=== PATIENT | female | born 1930 | race Caucasian/White ===

== ENCOUNTER 2018-10-28 16:31 | Inpatient (IN) | payer MEDICARE, MEDICAID ==
[2018-10-28] MEDS ORDERED: Sodium Chloride 0.9% 1,000 ML IV STA ×2 (17:03→22:23)
[2018-10-28 17:48] LABS: BASO % 0.1 % (0.0-2.0); EOS # 0.2 K/uL (0.0-0.7); HEMOGLOBIN 11.5 g/dL (12.0-16.0); LYMPH # 1.4 K/uL (1.0-4.3); LYMPH % 12.6 % (20.0-40.0); MEAN CELL VOLUME 92.9 fl (81.0-99.0); MEAN CORPUSCULAR HEMOGLOBIN 29.2 pg (27.0-31.0); MEAN CORPUSCULAR HGB CONC 31.4 g/dL (33.0-37.0); MEAN PLATELET VOLUME 6.7 fl (7.2-11.7); MONO # 0.8 K/uL (0.0-0.8); MONO % 6.7 % (0.0-10.0); NEUT # 8.9 K/uL (1.8-7.0); NEUT % 78.6 % (50.0-75.0); NRBC % 0.2 % (0.0-0.0); RBC 3.95 Mil/uL (3.80-5.20); RED CELL DISTRIBUTION WIDTH 17.6 % (11.5-14.5); WHITE BLOOD COUNT 11.4 K/uL (4.8-10.8)
[2018-10-28 17:50] LABS: VENOUS BLOOD GAS BASE EXCESS 6.8 mmol/L (0.0-2.0); VENOUS BLOOD GAS PCO2 57 mmHg (40-60); VENOUS BLOOD GAS PO2 17 mm/Hg (30-55); VENOUS BLOOD PH 7.38 (7.32-7.43)
--- NOTE | 2018-10-28 18:00 | RAD ---
Date of service: 10/28/2018 HISTORY: decreased po intake COMPARISON: 05/27/2014. FINDINGS: LUNGS: The lungs are well inflated and clear. PLEURA: No pleural effusions or pneumothorax. CARDIOVASCULAR: There is mild cardiomegaly. There are aortic atherosclerotic calcifications present. OSSEOUS STRUCTURES: Within normal limits for the patient's age. VISUALIZED UPPER ABDOMEN: Normal. OTHER FINDINGS: None. IMPRESSION: No active pulmonary disease.
[2018-10-28 18:02] LABS: ALB/GLOB RATIO 0.8 (1.0-2.1); ALBUMIN 3.1 g/dL (3.5-5.0); ALT/SGPT 17 U/L (9-52); AST/SGOT 35 U/L (14-36); BLOOD UREA NITROGEN 25 mg/dl (7-17); CALCIUM 8.9 mg/dL (8.4-10.2); GFR NON-AFRICAN AMERICAN > 60
--- NOTE | 2018-10-28 18:23 | ED PDOC ---
HPI: Altered Mental Status Time Seen by Provider: 10/28/18 16:50 Chief Complaint (Nursing): Altered Mental Status Chief Complaint (Provider): Altered Mental Status History Per: Other ([facility]) History/Exam Limitations: Clinical Condition Onset/Duration Of Symptoms: Days (x5) Current Symptoms Are (Timing): Still Present Description Of Symptoms: Not At Baseline Usual Baseline: Non-verbal Additional Complaint(s): 88 year old female with past history of gastritis and dementia, arrives to the emergency department from [facility] for an evaluation of altered mental status. History obtained from [facility] papers which reports that patient has not been eating for the past 5 days. Of note, patient is DNR/DNI. PCP: Dr. Ayoub Past Medical History Reviewed: Nursing Documentation, Vital Signs Vital Signs: Last Vital Signs Temp 97.6 F 10/28/18 16:32 Pulse 112 H 10/28/18 16:32 Resp 20 10/28/18 16:32 BP 111/60 10/28/18 16:32 Pulse Ox 90 L 10/28/18 16:32 - Medical History PMH: CAD, Dementia, Gastritis, Osteoporosis, Seizures Denies: HIV - Family History Family History: States: Unknown Family Hx - Social History Current smoker - smoking cessation education provided: No Alcohol: None Drugs: Denies - Home Medications Home Medications: Ambulatory Orders Medication Instructions Recorded Acetaminophen [Tylenol 325mg tab] 650 mg PO Q4 PRN 10/28/18 Acetaminophen [Tylenol 325mg tab] 650 mg PO Q4 PRN 10/28/18 Ascorbic Acid [Vitamin C 500 mg 500 mg PO DAILY 10/28/18 Tab] Bisoprolol [Zebeta] 5 mg PO DAILY 10/28/18 Cyproheptadine [Periactin] 4 mg PO BID 10/28/18 Dimethicone [Proshield Plus] 1 appl TOP QSHIFT 10/28/18 Lactobacillus Acidophilus 1 cap PO BID 10/28/18 [Acidophilus Lactobacilli] Lamotrigine [Lamictal] 150 mg PO Q12 10/28/18 Multivitamin [Multi-Vitamin Daily] 1 tab PO DAILY 10/28/18 Nitroglycerin 0.2 mg/hr [Nitro-Dur 1 patch TD DAILY 10/28/18 0.2 mg/hr Patch] Nystatin [Nystop Topical Powder] 1 appl TOP BID 10/28/18 [place]-3 Fatty Acids [Antioch-3] 1,000 mg PO DAILY 10/28/18 Ranitidine HCl [Zantac] 150 mg PO BID 10/28/18 Vitamin B Complex [Super B-50 1 cap PO DAILY 10/28/18 Complex] - Allergies Allergies/Adverse Reactions: Allergies Allergy/AdvReac Type Severity Reaction Status Date / Time No Known Allergies Allergy Verified 10/28/18 16:32 Review of Systems Review Of Systems: ROS cannot be obtained secondary to pt's inabilty to answer questions. Physical Exam - Reviewed Nursing Documentation Reviewed: Yes Vital Signs Reviewed: Yes - Physical Exam Appears: Positive for: No Acute Distress (dehydrated appearance). Negative for: Well Head Exam: Positive for: ATRAUMATIC, NORMAL INSPECTION, NORMOCEPHALIC Skin: Positive for: Normal Color ENT: Positive for: Normal ENT Inspection (dry mucous membranes) Neck: Positive for: Normal Cardiovascular/Chest: Positive for: Regular Rate, Rhythm Gastrointestinal/Abdominal: Positive for: Normal Exam Extremity: Positive for: Pedal Edema (pitting 1+ bilaterally; bilateral toes with fungal appearance) Neurologic/Psych: Positive for: Other (nonresponsive to verbal stimuli, however, minimally responsive to painful stimuli). Negative for: Alert, Oriented - Laboratory Results Result Diagrams: 10/28/18 17:15 10/28/18 17:15 Lab Results: pO2 17 mm/Hg (30-55) L 10/28/18 17:29 VBG pH 7.38 (7.32-7.43) 10/28/18 17:29 VBG pCO2 57 mmHg (40-60) 10/28/18 17:29 VBG HCO3 28.2 mmol/L 10/28/18 17:29 VBG Total CO2 35.4 mmol/L (22-28) H 10/28/18 17:29 VBG O2 Sat (Calc) 26.2 % (40-65) L 10/28/18 17:29 VBG Base Excess 6.8 mmol/L (0.0-2.0) H 10/28/18 17:29 VBG Potassium 4.4 mmol/L (3.6-5.2) 10/28/18 17:29 Sodium 152.0 mmol/L (132-148) H 10/28/18 17:29 Chloride 115.0 mmol/L (98-107) H 10/28/18 17:29 Glucose 106 mg/dL (65-105) H 10/28/18 17:29 Lactate 1.6 mmol/L (0.7-2.1) 10/28/18 17:29 FiO2 21.0 % 10/28/18 17:29 Total Bilirubin 1.4 mg/dl (0.2-1.3) H 10/28/18 17:15 AST 35 U/L (14-36) 10/28/18 17:15 ALT 17 U/L (9-52) 10/28/18 17:15 Alkaline Phosphatase 64 U/L (38-126) 10/28/18 17:15 Total Protein 7.1 G/DL (6.3-8.2) 10/28/18 17:15 Albumin 3.1 g/dL (3.5-5.0) L D 10/28/18 17:15 Globulin 4.0 gm/dL (2.2-3.9) H 10/28/18 17:15 Albumin/Globulin Ratio 0.8 (1.0-2.1) L 10/28/18 17:15 - ECG O2 Sat by Pulse Oximetry: 90 (RA) Pulse Ox Interpretation: Normal Medical Decision Making Medical Decision Making: Time: 1649 Initial Plan: altered mental status * Labs * CXR * IV fluids * Blood culture * Urine C&S Time: 2126 --CT FINDINGS: BRAIN No acute intraparenchymal hemorrhage. No mass lesion. No CT evidence for acute territorial infarct. No midline shift or extra-axial collections. There is marked age appropriate diffuse cerebral/cerebellar atrophy; which is noted to have progressed since the prior examination. There are bilateral confluent periventricular and subcortical white matter hypolucencies compatible with severe chronic microvascular disease. VENTRICLES: There is some compensatory ventricular dilatation noted for the cortical atrophy. VASCULAR: Atheroosclerotic vascular plaquing is noted within the vertebral arteries and carotid siphons bilaterally. ORBITS: The orbits are unremarkable. SINUSES AND MASTOIDS: A 1.0 cm mucous retention cyst or polyp is seen in the posterior inferior left maxillary sinus. Additional smaller mucous retention cysts or polyps are seen in the postero-medial and anterolateral aspects of the left maxillary sinus. An additional 1.7 x 1.4 cm mucous retention cyst or polyp is seen in the anterior superior left maxillary sinus. The remaining paranasal sinuses and mastoid air cells are clear. BONES: No fracture. SOFT TISSUES: Unremarkable. IMPRESSION: 1. No acute intracranial abnormality. 2. Marked age appropriate diffuse cerebral/cerebellar atrophy. 3. Mild compensatory ventricular dilatation for the cortical atrophy. 4. Severe chronic microvascular disease. 5. Atherosclerotic vascular plaquing. 6. Multiple left maxillary sinus mucous retention cysts or polyps. Time: 2229 CXR appears negative. Case discussed with Dr Ayoub pts doctor. Will admit patient to med/surg unit. urine obtained, will cover for uti. dr ayoub agrees with plan Scribe Attestation: Documented by Manda Lantigua, acting as a scribe for Jairon Church MD. Provider Scribe Attestation: All medical record entries made by the Scribe were at my direction and personally dictated by me. I have reviewed the chart and agree that the record accurately reflects my personal performance of the history, physical exam, medical decision making, and the department course for this patient. I have also personally directed, reviewed, and agree with the discharge instructions and disposition. Disposition - Clinical Impression Clinical Impression: Altered mental status, UTI (urinary tract infection) - Patient ED Disposition Is Patient to be Admitted: Yes - Disposition Disposition Time: 22:00 Condition: STABLE Forms: Prism[employer] ([place])
[2018-10-28 23:06] LABS: SQUAMOUS EPITHIAL 1 /hpf (0-5); URINE BACTERIA MANY (<OCC); URINE BILIRUBIN NEGATIVE (NEGATIVE); URINE BLOOD SMALL (NEGATIVE); URINE CLARITY CLOUDY (Clear); URINE COLOR AMBER (YELLOW); URINE GLUCOSE (UA) NEG (NEGATIVE); URINE LEUKOCYTE ESTERASE LARGE Leu/uL (Negative); URINE PROTEIN 30 mg/dL (NEGATIVE)
[2018-10-29] MEDS ORDERED: cefTRIAXone (Rocephin) 1 gm Inj ONE (01:08)
[2018-10-29] MEDS: Dextrose 5%/0.45% NS 1,000 ML IV SCH ×3 (07:03→20:57)
--- NOTE | 2018-10-29 09:49 | CT ---
Date of service: 10/28/2018 PROCEDURE: CT HEAD WITHOUT CONTRAST. HISTORY: ams COMPARISON: 05/25/2014 TECHNIQUE: Axial computed tomography images were obtained through the head/brain without intravenous contrast. Radiation dose: Total exam DLP = 905.84 mGy-cm. This CT exam was performed using one or more of the following dose reduction techniques: Automated exposure control, adjustment of the mA and/or kV according to patient size, and/or use of iterative reconstruction technique. FINDINGS: HEMORRHAGE: No intracranial hemorrhage. BRAIN: No mass effect or edema. Generalized cerebral atrophy and periventricular deep white matter hypodensities compatible with chronic microvascular ischemic changes. No interval vascular territory infarcts are appreciated. Similar right basal ganglia lacune VENTRICLES: Prominent commensurate with the degree of atrophy. No hydrocephalus. CALVARIUM: No lytic lesions. PARANASAL SINUSES: Similar paranasal sinus mostly left maxillary sinus retention cyst and/or polyps. MASTOID AIR CELLS: Interval increased soft tissue density within the mastoid air cells right side much more than left and some increased soft tissue density in the right middle ear cavity along with thickening of the right tympanic membrane suspect. Chronic mastitis changes with or without cholesteatoma and chronic otitis media findings are compatible with this. Soft tissue changes are interval changes. The chronic sclerotic changes of the mastoids are again noted. OTHER FINDINGS: Interval increased soft tissue density in each external auditory canal correlate clinically for visual inspection terms of cerumen and/or other inflammatory change here. No gaseous changes noted. The amount however is not unexpected or would be a surprise for any decreased hearing. Scattered bilateral scalp soft tissue density sebaceous cyst small which appear calcified are apparent Bilateral orbital scleral calcifications similarly noted. IMPRESSION: No intracranial hemorrhage or mass effect. Chronic atrophy and chronic microvascular changes-chronic right basal ganglia lacune. 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 Interval soft tissue change is in the mastoid and right middle ear cavity in both external auditory canals as detailed above. 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 The middle ear cavity and external auditory canal findings were not
[2018-10-30 00:47] LABS: ALB/GLOB RATIO 0.7 (1.0-2.1); ALBUMIN 2.7 g/dL (3.5-5.0); ALT/SGPT 25 U/L (9-52); AST/SGOT 26 U/L (14-36); BLOOD UREA NITROGEN 18 mg/dl (7-17); CALCIUM 7.8 mg/dL (8.4-10.2); GFR NON-AFRICAN AMERICAN > 60
[2018-10-30 01:00] VITALS: BMI 24.6
[2018-10-30] MEDS ORDERED: Potassium Chloride 20 mEq 100 ML IVPB ONE (01:04)
[2018-10-30] MEDS: Dextrose 5%/0.45% NS 1,000 ML IV SCH ×5 (01:16→22:31)
--- NOTE | 2018-10-30 05:34 | HP ---
HISTORY OF PRESENT ILLNESS: This is an 88-year-old female with history of multiple medical problems who is a [facility] resident, was brought to the emergency room for worsening of mental status, lethargy and the patient stopped to eat with remarkable decrease of oral intake. The patient was evaluated in the emergency room, and she was found to have dehydration with hypernatremia and the urine had 402 wbc's per high-power field. The patient was started on IV antibiotics and IV hydration and admitted for further management. The patient is severely demented and no further history could be obtained from the patient. Other review of systems is not obtainable as the patient has advanced dementia. The patient was admitted for further management. PAST MEDICAL HISTORY: Atherosclerotic cardiovascular disease, advanced dementia, hypertension, osteoarthritis. SOCIAL HISTORY: The patient is a [facility] resident. FAMILY HISTORY: Noncontributory. MEDICATIONS: As per MAR was ordered. PHYSICAL EXAMINATION: GENERAL: The patient is not in any cardiopulmonary distress at the time of this examination. VITAL SIGNS: With a blood pressure of 113/86, temperature 98.5, respiratory rate 20, and pulse 98. HEENT: Dry mucosa of the mouth. NECK: Supple. No JVD. No carotid bruit. No lymph node. No thyromegaly. CHEST AND LUNGS: Bilateral symmetrical expansion. Good air exchange. No rales. No rhonchi. CARDIOVASCULAR SYSTEM: PMI not localized. S1 and S2. No additional sounds. ABDOMEN: Decreased bowel sounds. No tenderness. No organomegaly. No masses. EXTREMITIES: No cyanosis, no clubbing, no edema. The patient has deformity of both upper extremities, likely secondary to rheumatoid arthritis. Blood work done in the emergency room. CENTRAL NERVOUS SYSTEM: The patient is confused. She is not responsive to any verbal stimuli. She has 5/5 muscle power of both upper extremities, but she is having weakness of both lower extremities. ASSESSMENT: 1. Dehydration. 2. Severe hypernatremia. 3. Urinary tract infection. PLAN: We will start IV fluids D5 half normal saline. The patient is already started on Zosyn. We will continue and monitor the urine culture results. Plan, continue IV fluid and continue antibiotics and follow culture sent. Marco Antonio Ayoub MD [facility] # [id number]
[2018-10-30] MEDS: Proshield Plus GEL TOP SCH (09:35)
[2018-10-30] MEDS: Enoxaparin 40 mg Syringe SC SCH (09:38)
[2018-10-30] MEDS: Nitroglycerin 0.2 mg/hr Top Patch TD SCH (09:38)
[2018-10-30] MEDS: Omega-3-Acid Ethyl Esters 1 GM Cap PO SCH (09:40)
[2018-10-30] MEDS: Multivitamin With Minerals Tab PO SCH (09:41)
[2018-10-30] MEDS: Lactobacillus Acidophilus 500 MU Cap PO SCH ×2 (09:59→16:42)
[2018-10-30] MEDS: Multivitamin Vitamin B Complex (Nephro-Vite) Tab PO SCH (16:31)
--- NOTE | 2018-10-31 01:21 | PN ---
DATE: 10/30/2018 SUBJECTIVE: The patient is seen today, 10/30/2018. She is not in any cardiopulmonary distress. The patient is more awake and alert. PHYSICAL EXAMINATION: VITAL SIGNS: Blood pressure is 125/71, temperature 96.7, respiratory rate 20. HEENT: Slightly dry mucosa of the conjunctivae. NECK: Supple. No JVD. No carotid bruit. No lymph node. No thyromegaly. CHEST AND LUNGS: Bilateral symmetrical expansion. Good air exchange. No rales. No rhonchi. CARDIOVASCULAR SYSTEM: PMI not localized. S1 and S2. No additional sounds. ABDOMEN: Normoactive bowel sounds. No tenderness. No organomegaly. No masses. EXTREMITIES: No cyanosis, no clubbing, no edema. CENTRAL NERVOUS SYSTEM: The patient is alert and she is not disoriented or confused. There is bilateral lower extremity weakness and deformity of both hands. ASSESSMENT: 1. Severe dehydration. 2. Hypernatremia. PLAN: Continue [place] catheter and adequate hydration and current IV antibiotics treatment for urinary tract infection. Marco Antonio Ayoub MD
[2018-10-31] MEDS: Dextrose 5%/0.45% NS 1,000 ML IV SCH ×2 (04:07→09:00)
[2018-10-31 06:51] LABS: HEMOGLOBIN 9.9 g/dL (12.0-16.0); MEAN CELL VOLUME 93.9 fl (81.0-99.0); MEAN CORPUSCULAR HEMOGLOBIN 30.5 pg (27.0-31.0); MEAN CORPUSCULAR HGB CONC 32.4 g/dL (33.0-37.0); RBC 3.25 Mil/uL (3.80-5.20); RED CELL DISTRIBUTION WIDTH 17.6 % (11.5-14.5)
[2018-10-31 07:19] LABS: ALB/GLOB RATIO 0.7 (1.0-2.1); ALBUMIN 2.3 g/dL (3.5-5.0); ALT/SGPT 21 U/L (9-52); AST/SGOT 23 U/L (14-36); BLOOD UREA NITROGEN 17 mg/dl (7-17); CALCIUM 7.7 mg/dL (8.4-10.2); GFR NON-AFRICAN AMERICAN > 60
[2018-10-31] MEDS: Lactobacillus Acidophilus 500 MU Cap PO SCH ×2 (08:59→17:17)
[2018-10-31] MEDS: Omega-3-Acid Ethyl Esters 1 GM Cap PO SCH (09:01)
[2018-10-31] MEDS: Multivitamin Vitamin B Complex (Nephro-Vite) Tab PO SCH (09:01)
[2018-10-31] MEDS ORDERED: Potassium Chloride 20 mEq/15 ml LIQ UD PO ONE (09:01)
[2018-10-31] MEDS: Nitroglycerin 0.2 mg/hr Top Patch TD SCH (09:01)
[2018-10-31] MEDS: Multivitamin With Minerals Tab PO SCH (09:04)
[2018-10-31] MEDS: Enoxaparin 40 mg Syringe SC SCH (09:11)
--- NOTE | 2018-11-01 03:09 | PN ---
DATE: 10/31/2018 SUBJECTIVE: The patient is seen today on 10/31/2018 and she is more awake. PHYSICAL EXAMINATION: VITAL SIGNS: Blood pressure is 105/71, temperature 97.8, respiratory rate 20, and pulse 85. HEENT: Pupils are equal and reactive to light. Normal-appearing mucosa of the conjunctivae, oropharynx and nasal membrane mucosa. NECK: Supple. No JVD. No carotid bruit. No lymph node. No thyromegaly. CHEST AND LUNGS: Bilateral symmetrical expansion. Good air exchange. No rales. No rhonchi. CARDIOVASCULAR SYSTEM: PMI not localized. S1 and S2. No additional sounds. ABDOMEN: Normoactive bowel sounds. No tenderness. No organomegaly. No masses. EXTREMITIES: No cyanosis, no clubbing, no edema. CENTRAL NERVOUS SYSTEM: The patient is awake, but confused and she has bilateral lower extremity weakness. ASSESSMENT: 1. Severe dehydration. 2. Hypernatremia. 3. Symptomatic urinary tract infection with decreased oral intake. PLAN: Continue Zosyn and follow the urine culture which so far showed gram-negative rods. [facility] MD Mega
[2018-11-01] MEDS: Enoxaparin 40 mg Syringe SC SCH (08:41)
[2018-11-01] MEDS: Multivitamin Vitamin B Complex (Nephro-Vite) Tab PO SCH (08:42)
[2018-11-01] MEDS: Multivitamin With Minerals Tab PO SCH (08:42)
[2018-11-01] MEDS: Omega-3-Acid Ethyl Esters 1 GM Cap PO SCH (08:43)
[2018-11-01] MEDS: Lactobacillus Acidophilus 500 MU Cap PO SCH ×3 (08:49→17:14)
[2018-11-01] MEDS: Nitroglycerin 0.2 mg/hr Top Patch TD SCH (09:58)
[2018-11-02] MEDS: Nitroglycerin 0.2 mg/hr Top Patch TD SCH (08:45)
[2018-11-02] MEDS: Multivitamin Vitamin B Complex (Nephro-Vite) Tab PO SCH (09:00)
[2018-11-02] MEDS: Multivitamin With Minerals Tab PO SCH (09:00)
[2018-11-02] MEDS: Omega-3-Acid Ethyl Esters 1 GM Cap PO SCH (09:00)
[2018-11-02] MEDS: Lactobacillus Acidophilus 500 MU Cap PO SCH (09:00)
[2018-11-02] MEDS: Enoxaparin 40 mg Syringe SC SCH (13:39)
--- NOTE | 2018-11-03 00:31 | PN ---
DATE: 11/02/2018 SUBJECTIVE: She is more awake and occasionally she is aggressive on refusing care and getting her medications. PHYSICAL EXAMINATION: VITAL SIGNS: Blood pressure is 108/76, temperature 98.7, respiratory rate 20 and pulse 90. HEENT: Normal-appearing mucosa of the conjunctivae, oropharynx and nasal membrane mucosa. NECK: Supple. No JVD. No carotid bruit. No lymph node. No thyromegaly. CHEST AND LUNGS: Bilateral symmetrical expansion. Good air exchange. No rales, no rhonchi. CARDIOVASCULAR SYSTEM: PMI not localized. S1, S2. No additional sounds. ABDOMEN: Normoactive bowel sounds. No tenderness. No organomegaly. No masses. EXTREMITIES: No cyanosis, no clubbing, no edema. CENTRAL NERVOUS SYSTEM: The patient is awake but confused. She has bilateral lower extremity weakness as the patient is bedridden. ASSESSMENT: Sepsis, urinary tract infection, dehydration, dementia/mental retardation, seizure disorder, hypertension. PLAN: Continue current medications and IV fluid. Repeat blood work in the morning. If the patient is stable, we will discharge back to alf. Marco Antonio Ayoub MD
[2018-11-03] MEDS: Lactobacillus Acidophilus 500 MU Cap PO SCH ×2 (08:57→16:37)
[2018-11-03] MEDS: Nitroglycerin 0.2 mg/hr Top Patch TD SCH (08:58)
[2018-11-03] MEDS: Multivitamin Vitamin B Complex (Nephro-Vite) Tab PO SCH (08:59)
[2018-11-03] MEDS: Multivitamin With Minerals Tab PO SCH (08:59)
[2018-11-03] MEDS: Omega-3-Acid Ethyl Esters 1 GM Cap PO SCH (08:59)
[2018-11-03 13:23] LABS: HEMOGLOBIN 9.9 g/dL (12.0-16.0); MEAN CELL VOLUME 94.5 fl (81.0-99.0); MEAN CORPUSCULAR HEMOGLOBIN 30.1 pg (27.0-31.0); MEAN CORPUSCULAR HGB CONC 31.9 g/dL (33.0-37.0); RBC 3.28 Mil/uL (3.80-5.20); RED CELL DISTRIBUTION WIDTH 19.1 % (11.5-14.5); WHITE BLOOD COUNT 5.1 K/uL (4.8-10.8)
[2018-11-03 13:35] LABS: ALB/GLOB RATIO 0.7 (1.0-2.1); ALBUMIN 2.4 g/dL (3.5-5.0); ALT/SGPT 23 U/L (9-52); AST/SGOT 35 U/L (14-36); CALCIUM 7.7 mg/dL (8.4-10.2)
[2018-11-03 13:36] LABS: BLOOD UREA NITROGEN 11 mg/dl (7-17); GFR NON-AFRICAN AMERICAN > 60
[2018-11-03] MEDS: Meropenem 500 MG in Sodium Chloride 0.9% 100 ML IVPB SCH (14:29)
--- NOTE | 2018-11-03 16:08 | CP.PCM.CON ---
History of Present Illness - History of Present Illness History of Present Illness: History of Present Illness Palliative Care Consult requested by Dr. Ayoub for Goals of Care Discussion. Patient is a 88 year old female admitted from the [facility] on 10/[facility]/18 for failure to thrive and altered mental status. As per [facility], patient has had a lost of appetite for 5 days prior to this hospital admission. The patient was evaluated in the ER and found to have UTI and dehydration. As per primary RN, patient was able to tolerate a pureed diet yesterday but today is refusing all PO intake including medications. CT Head shows no evidence for acute territorial infarct CXR shows no active pulmonary disease UA-shows UTI Urine culture:E coli PMH: Gastritis, Dementia, CAD, Seizures Social Hx: Lives in [facility] Family Hx: Mother: DMII, COPD Father:Pulmonary Embolism Review of Systems - Review of Systems Review of Systems: ROS not obtained from the patient due to altered mental status and patient combativeness during interview. ROS obtained from sister Anaid - Constitutional Constitutional: Fatigue Additional comments: decreased appetite - EENT Ears: Decreased Hearing, Abnormal Hearing Past Patient History - Past Medical History & Family History Past Medical History?: No - Past Social History Smoking Status: Never Smoked - NEUROLOGICAL Hx Dementia: Yes Hx Seizures: Yes - HEMATOLOGICAL/ONCOLOGICAL Hx Human Immunodeficiency Virus (HIV): No - MUSCULOSKELETAL/RHEUMATOLOGICAL Hx Falls: No Other/Comment: surgical scar to R hip - GASTROINTESTINAL Hx Gastritis: Yes - GENITOURINARY/GYNECOLOGICAL Hx Incontinence: Yes - PSYCHIATRIC Hx Substance Use: No - ANESTHESIA Hx Anesthesia: No Meds Allergies/Adverse Reactions: Allergies Allergy/AdvReac Type Severity Reaction Status Date / Time No Known Allergies Allergy Verified 10/28/18 16:32 - Medications Medications: Current Medications Acetaminophen (Tylenol 325mg Tab) 650 mg PO Q4 PRN PRN Reason: Temp 100 or above Ascorbic Acid (Vitamin C 500 Mg Tab) 500 mg PO DAILY [facility] Last Admin: 11/03/18 08:59 Dose: Not Given Bisoprolol Fumarate (Zebeta) 5 mg PO DAILY [facility] Last Admin: 11/03/18 09:00 Dose: Not Given Cyproheptadine HCl (Periactin) 4 mg PO BID [facility] Last Admin: 11/03/18 08:59 Dose: Not Given Dimethicone (Proshield Plus Skin Protectant) 1 applic TOP QSHIFT [facility] Last Admin: 10/30/18 09:35 Dose: 1 applic Famotidine (Pepcid) 20 mg PO BID [facility] Last Admin: 11/03/18 08:59 Dose: Not Given Meropenem 500 mg/ Sodium (Chloride) 100 mls @ 100 mls/hr IVPB Q8 [facility]; Protocol Last Admin: 11/03/18 14:29 Dose: 100 mls/hr Lactobacillus Acidophilus (Bacid Acidophilus) 1 cap PO BID [facility] Last Admin: 11/03/18 08:57 Dose: Not Given Lamotrigine (Lamictal) 150 mg PO Q12 [facility] Last Admin: 11/03/18 08:59 Dose: Not Given Multivitamins/Minerals (Therapeutic-M Tab) 1 tab PO DAILY [facility] Last Admin: 11/03/18 08:59 Dose: Not Given Nitroglycerin (Nitro-Dur 0.2 Mg/Hr Patch) 1 patch TD DAILY [facility] Last Admin: 11/03/18 08:58 Dose: 1 patch Nystatin (Nystop Topical Powder) 1 applic TOP BID [facility] Last Admin: 11/03/18 08:58 Dose: 1 applic [id number] Ethyl Esters (Lovaza) 1 gm PO DAILY [facility] Last Admin: 11/03/18 08:59 Dose: Not Given Vitamin B Complex/Vit C/Folic Acid (Nephro-Carlos) 1 tab PO DAILY [facility] Last Admin: 11/03/18 08:59 Dose: Not Given Physical Exam - Constitutional Appears: No Acute Distress, Agitated, Confused, Chronically Ill - Head Exam Head Exam: ATRAUMATIC, NORMAL INSPECTION, NORMOCEPHALIC - Eye Exam Eye Exam: Normal appearance, PERRL Pupil Exam: NORMAL ACCOMODATION, PERRL - ENT Exam ENT Exam: Mucous Membranes Dry - Neck Exam Neck exam: Positive for: Normal Inspection - Respiratory Exam Respiratory Exam: Decreased Breath Sounds, NORMAL BREATHING PATTERN - Cardiovascular Exam Cardiovascular Exam: REGULAR RHYTHM - GI/Abdominal Exam GI & Abdominal Exam: Hypoactive Bowel Sounds - Rectal Exam Rectal Exam: Deferred - Exam Additional comments: Mello Catheter in place - Extremities Exam Extremities exam: Positive for: pedal edema, pedal pulses present - Back Exam Back exam: NORMAL INSPECTION - Neurological Exam Neurological exam: Alert, Altered - Psychiatric Exam Psychiatric exam: Agitated - Skin Skin Exam: Pallor Additional comments: Right buttock wound Results - Vital Signs Recent Vital Signs: Last Vital Signs Temp 99 F 11/03/18 07:56 Pulse 108 H 11/03/18 08:58 Resp 20 11/03/18 07:56 BP 127/87 11/03/18 08:58 Pulse Ox 91 L 11/03/18 07:56 - Labs Result Diagrams: 11/03/18 12:30 11/03/18 12:30 Labs: Laboratory Results - last 24 hr 11/03/18 11/03/18 12:30 12:30 WBC 5.1 RBC 3.28 L Hgb 9.9 L Hct 31.0 L MCV 94.5 MCH 30.1 MCHC 31.9 L RDW 19.1 H Plt Count 205 Sodium 143 Potassium 3.9 Chloride 113 H Carbon Dioxide 25 Anion Gap 9 L BUN 11 Creatinine 0.6 L Est GFR ( Amer) > 60 Est GFR (Non-Af Amer) > 60 Random Glucose 77 Calcium 7.7 L Magnesium 2.1 Total Bilirubin 0.8 AST 35 ALT 23 Alkaline Phosphatase 166 H D Total Protein 6.0 L Albumin 2.4 L Globulin 3.6 Albumin/Globulin Ratio 0.7 L Assessment & Plan - Assessment and Plan (Free Text) Assessment: Assessment and Plan Palliative Consult DNR/DNI and there is a [place] POLST form in the patient's chart. PPS 30% I reviewed medical records, all diagnostic studies, examined patient in bed and interviewed the sister "Anaid" at the bedside. -awake, alert and disoriented. Patient is a bit aggressive, speech is mumbled, and not totally willing to participate during exam. -Patient is non ambulatory and needs assistance for repositioning in bed . -Skin is not intact. Patient has wound on right buttock -Patient has bilateral pedal edema. pedal pulses are present -Breath sounds are diminished throughout, patient also on 3L NC -Patient is tolerating PO feeding by sister -Patient is incontinent to urine and stool, patient has mello catheter (urine output being monitored) -Patient states that she has no pain when asked, PRN tylenol is available for pain management Vitals: Goals of care discussed with sister Anaid. Patient has dementia and is disoriented . Anaid states that she wants limited treatment for her sister such a s IV antibiotics but wants to avoid major interventions if they will not make a big difference in patient's quality of life. Sister also requested a change in POLST form concerning artificial nutrition. On prior POLST form it states that no artificial nutrition is to be administered and she would like to change it to say "Defined trial period of artificial nutrition" if ever the situation should arise. New POLST form completed and placed in chart. Primary RN Sadia made aware. Code Status discussed with patient's sister Anaid. Patient is currently DNR/DNI as per POLST form previously completed. Patient sister was reeducated on DNR/DNI and verbalized understanding and she reiterated that DNR/DNI code status is what she wants for her sister. 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
--- NOTE | 2018-11-03 16:23 | CP.PCM.CON ---
History of Present Illness - History of Present Illness History of Present Illness: Infectious disease consultation note Asked to see this patient at the request of Dr. Ayoub for UTI. History obtained from the medical chart and the nursing staff as patient has dementia and cannot provide history. Patient is a 88-year-old female admitted from [facility] on October 28 for failure to thrive and altered mental status. On admission patient was found to have positive urinalysis and now I am being asked to evaluate the patient for E. coli UTI that is resistant to most antibiotics except carbapenem. Patient was also found to have minimal leukocytosis on admission but she has remained afebrile. Patient is currently awake however she is at her baseline dementia and is not able to answer questions. Patient does have a Mello catheter that as per nurse was placed during hospitalization here. CT Head shows no evidence for acute territorial infarct as per report CXR shows no active pulmonary disease UA-shows UTI Urine culture:E coli PMH: Gastritis, Dementia, CAD, Seizures Social Hx: Lives in Retirement Family Hx: Mother: DMII, COPD Father:Pulmonary Embolism Review of Systems - Review of Systems Review of Systems: Review of systems Unable to obtain as patient does not answer questions however she does not negative when I ask about abdominal pain. Past Patient History - Past Medical History & Family History Past Medical History?: No - Past Social History Smoking Status: Never Smoked Home Situation {Lives}: Retirement - NEUROLOGICAL Hx Dementia: Yes Hx Seizures: Yes - HEMATOLOGICAL/ONCOLOGICAL Hx Blood Disorders: No - MUSCULOSKELETAL/RHEUMATOLOGICAL Hx Falls: No Other/Comment: surgical scar to R hip - GASTROINTESTINAL Hx Gastritis: Yes - GENITOURINARY/GYNECOLOGICAL Hx Incontinence: Yes - PSYCHIATRIC Hx Substance Use: No - ANESTHESIA Hx Anesthesia: No Meds Allergies/Adverse Reactions: Allergies Allergy/AdvReac Type Severity Reaction Status Date / Time No Known Allergies Allergy Verified 10/28/18 16:32 - Medications Medications: Current Medications Acetaminophen (Tylenol 325mg Tab) 650 mg PO Q4 PRN PRN Reason: Temp 100 or above Ascorbic Acid (Vitamin C 500 Mg Tab) 500 mg PO DAILY [facility] Last Admin: 11/03/18 08:59 Dose: Not Given Bisoprolol Fumarate (Zebeta) 5 mg PO DAILY [facility] Last Admin: 11/03/18 09:00 Dose: Not Given Cyproheptadine HCl (Periactin) 4 mg PO BID [facility] Last Admin: 11/03/18 08:59 Dose: Not Given Dimethicone (Proshield Plus Skin Protectant) 1 applic TOP QSHIFT [facility] Last Admin: 10/30/18 09:35 Dose: 1 applic Famotidine (Pepcid) 20 mg PO BID [facility] Last Admin: 11/03/18 08:59 Dose: Not Given Meropenem 500 mg/ Sodium (Chloride) 100 mls @ 100 mls/hr IVPB Q8 [facility]; Protocol Last Admin: 11/03/18 14:29 Dose: 100 mls/hr Lactobacillus Acidophilus (Bacid Acidophilus) 1 cap PO BID [facility] Last Admin: 11/03/18 08:57 Dose: Not Given Lamotrigine (Lamictal) 150 mg PO Q12 [facility] Last Admin: 11/03/18 08:59 Dose: Not Given Multivitamins/Minerals (Therapeutic-M Tab) 1 tab PO DAILY [facility] Last Admin: 11/03/18 08:59 Dose: Not Given Nitroglycerin (Nitro-Dur 0.2 Mg/Hr Patch) 1 patch TD DAILY [facility] Last Admin: 11/03/18 08:58 Dose: 1 patch Nystatin (Nystop Topical Powder) 1 applic TOP BID [facility] Last Admin: 11/03/18 08:58 Dose: 1 applic [id number] Ethyl Esters (Lovaza) 1 gm PO DAILY [facility] Last Admin: 11/03/18 08:59 Dose: Not Given Vitamin B Complex/Vit C/Folic Acid (Nephro-Carlos) 1 tab PO DAILY [facility] Last Admin: 11/03/18 08:59 Dose: Not Given Physical Exam - Constitutional Appears: No Acute Distress, Confused, Chronically Ill - Head Exam Head Exam: ATRAUMATIC - Eye Exam Eye Exam: EOMI - ENT Exam Additional comments: dry oropharynx - Neck Exam Neck exam: Positive for: Full Rom - Respiratory Exam Respiratory Exam: Clear to Auscultation Bilateral, NORMAL BREATHING PATTERN - Cardiovascular Exam Cardiovascular Exam: RRR, +S1, +S2 - GI/Abdominal Exam GI & Abdominal Exam: Normal Bowel Sounds, Soft Additional comments: NT, ND - Extremities Exam Additional comments: no edema b/l LE onychomycosis present b/l - Neurological Exam Additional comments: baseline dementia - Skin Additional comments: Skin exam Patient has a small 2 x 1 cm stage II sacral decub, no discharge, no surrounding erythema. Results - Vital Signs Recent Vital Signs: Last Vital Signs Temp 97.1 F L 11/03/18 16:08 Pulse 101 H 11/03/18 16:08 Resp 20 11/03/18 16:08 BP 98/56 L 11/03/18 16:08 Pulse Ox 91 L 11/03/18 16:08 - Labs Result Diagrams: 11/03/18 12:30 11/03/18 12:30 Labs: Laboratory Results - last 24 hr 11/03/18 11/03/18 12:30 12:30 WBC 5.1 RBC 3.28 L Hgb 9.9 L Hct 31.0 L MCV 94.5 MCH 30.1 MCHC 31.9 L RDW 19.1 H Plt Count 205 Sodium 143 Potassium 3.9 Chloride 113 H Carbon Dioxide 25 Anion Gap 9 L BUN 11 Creatinine 0.6 L Est GFR ( Amer) > 60 Est GFR (Non-Af Amer) > 60 Random Glucose 77 Calcium 7.7 L Magnesium 2.1 Total Bilirubin 0.8 AST 35 ALT 23 Alkaline Phosphatase 166 H D Total Protein 6.0 L Albumin 2.4 L Globulin 3.6 Albumin/Globulin Ratio 0.7 L Laboratory Results - last 72 hr 11/03/18 11/03/18 12:30 12:30 WBC 5.1 RBC 3.28 L Hgb 9.9 L Hct 31.0 L MCV 94.5 MCH 30.1 MCHC 31.9 L RDW 19.1 H Plt Count 205 Sodium 143 Potassium 3.9 Chloride 113 H Carbon Dioxide 25 Anion Gap 9 L BUN 11 Creatinine 0.6 L Est GFR ( Amer) > 60 Est GFR (Non-Af Amer) > 60 Random Glucose 77 Calcium 7.7 L Magnesium 2.1 Total Bilirubin 0.8 AST 35 ALT 23 Alkaline Phosphatase 166 H D Total Protein 6.0 L Albumin 2.4 L Globulin 3.6 Albumin/Globulin Ratio 0.7 L Microbiology 10/28/18 05:45 Blood Blood Culture - Final NO GROWTH AFTER 5 DAYS 10/28/18 05:45 Blood Gram Stain - Final TEST NOT PERFORMED 10/28/18 17:15 Blood Blood Culture - Final NO GROWTH AFTER 5 DAYS 10/28/18 17:15 Blood Gram Stain - Final TEST NOT PERFORMED 10/28/18 22:45 Urine,Catheterized Urine Culture - Final Escherichia Coli Accession No. : [id number] Patient Name / ID : SUDHEER STERLING / [id number] Exam Date : 10/28/2018 17:25:12 ( Approved ) Study Comment : Sex / Age : F / 88Y Creator : Sindy Chawla MD Dictator : Sindy Chawla MD Design Cell Engineer : Insurance Instructor : Sindy Chawla MD Approver2 : Report Date : 10/28/2018 17:56:10 My Comment : Date of service: 10/28/2018 HISTORY: decreased po intake COMPARISON: 05/27/2014. FINDINGS: LUNGS: The lungs are well inflated and clear. PLEURA: No pleural effusions or pneumothorax. CARDIOVASCULAR: There is mild cardiomegaly. There are aortic atherosclerotic calcifications present. OSSEOUS STRUCTURES: Within normal limits for the patient's age. VISUALIZED UPPER ABDOMEN: Normal. OTHER FINDINGS: None. IMPRESSION: No active pulmonary disease. Accession No. : [id number] Patient Name / ID : SUDHEER STERLING / [id number] Exam Date : 10/28/2018 21:05:12 ( Approved ) Study Comment : Sex / Age : F / 88Y Creator : Iona Abraham Dictator : Iona Abraham Design Cell Engineer : Insurance Instructor : Iona Abraham Approver2 : Report Date : 10/29/2018 09:46:03 My Comment : * Date of service: 10/28/2018 PROCEDURE: CT HEAD WITHOUT CONTRAST. HISTORY: ams COMPARISON: 05/25/2014 TECHNIQUE: Axial computed tomography images were obtained through the head/brain without intravenous contrast. Radiation dose: Total exam DLP = 905.84 mGy-cm. This CT exam was performed using one or more of the following dose reduction techniques: Automated exposure control, adjustment of the mA and/or kV according to patient size, and/or use of iterative reconstruction technique. FINDINGS: HEMORRHAGE: No intracranial hemorrhage. BRAIN: No mass effect or edema. Generalized cerebral atrophy and periventricular deep white matter hypodensities compatible with chronic microvascular ischemic changes. No interval vascular territory infarcts are appreciated. Similar right basal ganglia lacune VENTRICLES: Prominent commensurate with the degree of atrophy. No hydrocephalus. CALVARIUM: No lytic lesions. PARANASAL SINUSES: Similar paranasal sinus mostly left maxillary sinus retention cyst and/or polyps. MASTOID AIR CELLS: Interval increased soft tissue density within the mastoid air cells right side much more than left and some increased soft tissue density in the right middle ear cavity along with thickening of the right tympanic membrane suspect. Chronic mastitis changes with or without cholesteatoma and chronic otitis media findings are compatible with this. Soft tissue changes are interval changes. The chronic sclerotic changes of the mastoids are again noted. OTHER FINDINGS: Interval increased soft tissue density in each external auditory canal correlate clinically for visual inspection terms of cerumen and/or other inflammatory change here. No gaseous changes noted. The amount however is not unexpected or would be a surprise for any decreased hearing. Scattered bilateral scalp soft tissue density sebaceous cyst small which appear calcified are apparent Bilateral orbital scleral calcifications similarly noted. IMPRESSION: No intracranial hemorrhage or mass effect. Chronic atrophy and chronic microvascular changes-chronic right basal ganglia lacune. 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 Interval soft tissue change is in the mastoid and right middle ear cavity in both external auditory canals as detailed above. 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 The middle ear cavity and external auditory canal findings were not Assessment & Plan (1) Altered mental status Status: Acute (2) UTI (urinary tract infection) Status: Acute (3) Dementia Status: Acute - Assessment and Plan (Free Text) Assessment: Assessment and plan Patient is a 88-year-old female resident of [facility] admitted with failure to thrive and altered mental status. Patient has remained afebrile. Positive urinalysis with urine culture growing E. coli sensitive to imipenem. Minimal leukocytosis has resolved. Plan Advised to start patient on meropenem IV to treat E. coli UTI. advise to fatou of 7 days of IV abx for this. Monitor WBC and temps. advise wound care for the sacral decub adn keep it covered. pt. has mello in place. advise to place new mello. All labs and imaging and pertinent chart notes were reviewed. Thank you for allowing me to take part in the care of this patient.
[2018-11-04] MEDS: Meropenem 500 MG in Sodium Chloride 0.9% 100 ML IVPB SCH ×4 (00:01→16:01)
--- NOTE | 2018-11-04 01:46 | PN ---
DATE: 11/03/2018 DAILY PROGRESS NOTE SUBJECTIVE: The patient is seen today, 11/03/2018. She is not in any cardiopulmonary distress. PHYSICAL EXAMINATION: VITAL SIGNS: Blood pressure 127/87, temperature 97.1, respiratory rate 20, and pulse 108. HEENT: Slightly pale mucosa of the conjunctivae. NECK: Supple. No JVD. No carotid bruit. No lymph node. No thyromegaly. CHEST AND LUNGS: Bilateral symmetrical expansion. Good air exchange. No rales. No rhonchi. CARDIOVASCULAR SYSTEM: PMI not localized. S1 and S2. No additional sounds. ABDOMEN: Normoactive bowel sounds. No tenderness. No organomegaly. No masses. EXTREMITIES: No cyanosis, no clubbing, no edema. CENTRAL NERVOUS SYSTEM: The patient is awake but confused and not cooperative to physical exam. She has weakness of the right upper extremity with deformity and bilateral lower extremity weakness. LABORATORY DATA: Urine culture showed the patient has E. coli which is sensitive to meropenem. ASSESSMENT: Symptomatic urinary tract infection, hypernatremia, dehydration, and dementia. PLAN: We will stop Zosyn and give the patient meropenem. ID consult. We will repeat blood work. Marco Antonio Ayoub MD
[2018-11-04] MEDS: Omega-3-Acid Ethyl Esters 1 GM Cap PO SCH (10:59)
[2018-11-04] MEDS: Lactobacillus Acidophilus 500 MU Cap PO SCH ×2 (10:59→16:01)
[2018-11-04] MEDS: Multivitamin Vitamin B Complex (Nephro-Vite) Tab PO SCH (11:02)
[2018-11-04] MEDS: Nitroglycerin 0.2 mg/hr Top Patch TD SCH (11:04)
[2018-11-04] MEDS: Multivitamin With Minerals Tab PO SCH (11:05)
--- NOTE | 2018-11-05 01:37 | PN ---
DATE: 11/04/2018 DAILY PROGRESS NOTE SUBJECTIVE: The patient is seen today, 11/04/2018. She is afebrile. The patient is not cooperative to physical examination nor keeping conversation. PHYSICAL EXAMINATION: VITAL SIGNS: Blood pressure was 116/50, temperature 97.6, respiratory rate 20, and pulse 80. HEENT: Slightly pale mucosa of the conjunctivae. NECK: Supple. No JVD. No carotid bruit. No lymph node. No thyromegaly. CHEST AND LUNGS: Bilateral symmetrical expansion. Good air exchange. No rales. No rhonchi. CARDIOVASCULAR SYSTEM: PMI not localized. S1 and S2. No additional sounds. ABDOMEN: Normoactive bowel sounds. No tenderness. No organomegaly. No masses. EXTREMITIES: No cyanosis, no clubbing, no edema. CENTRAL NERVOUS SYSTEM: The patient is awake, but confused. She has bilateral lower extremity weakness. The patient is bedridden. ASSESSMENT: Hypernatremia, dehydration, urinary tract infection with Escherichia coli which is sensitive to meropenem. PLAN: We will continue current antibiotics and follow ID recommendations. Marco Antonio Ayoub MD
[2018-11-05] MEDS: Meropenem 500 MG in Sodium Chloride 0.9% 100 ML IVPB SCH ×3 (01:56→17:00)
[2018-11-05] MEDS: Proshield Plus GEL TOP SCH (09:51)
[2018-11-05] MEDS: Nitroglycerin 0.2 mg/hr Top Patch TD SCH (09:52)
[2018-11-05] MEDS: Omega-3-Acid Ethyl Esters 1 GM Cap PO SCH (09:53)
[2018-11-05] MEDS: Multivitamin With Minerals Tab PO SCH (09:53)
[2018-11-05] MEDS: Multivitamin Vitamin B Complex (Nephro-Vite) Tab PO SCH (09:54)
[2018-11-05] MEDS: Lactobacillus Acidophilus 500 MU Cap PO SCH (09:57)
[2018-11-05] MEDS ORDERED: Lidocaine Hydrochloride 5 ML INJ ONE (11:59)
[2018-11-05 12:24] VITALS: O2SAT 98
--- NOTE | 2018-11-05 12:37 | PCM.SURG1 ---
Surgeon's Initial Post Op Note - Surgeon's Notes Surgeon: Cody White MD Marketing Communication Manager: NONE Type of Anesthesia: Local Pre-Operative Diagnosis: Infection Operative Findings: US showed patent right basilic vein Post-Operative Diagnosis: Infection Operation Performed: Single lumen picc placement right arm, 32 cm. Specimen/Specimens Removed: none Estimated Blood Loss: EBL {In ML}: 2 Blood Products Given: N/A Drains Used: No Drains Post-Op Condition: Fair Date of Surgery/Procedure: 11/05/18 Time of Surgery/Procedure: 12:25
--- NOTE | 2018-11-05 13:12 | VASCULAR ---
PROCEDURE: Date of procedure: 11/05/2018 Procedure: 1. Placement of a right arm PICC with ultrasound and fluoroscopic guidance, CPT 80944 2. PICC tip confirmation with spot radiograph and is in the superior vena cava Medications: 1 percent lidocaine Total Fluoro time: 2.5 Seconds Radiation: 0.21 MGy EBL: 2 cc HISTORY: Infection requiring long-term IV antibiotics TECHNIQUE: Following informed consent and procedure time-out, the patient was placed supine on the interventional table and the right arm prepped and draped in the usual sterile fashion. Ultrasound showed a patent and compressible right basilic vein. After the skin was anesthetized with lidocaine, the basilic vein was accessed with micro micropuncture technique using ultrasound guidance. A guidewire was then advanced under fluoroscopic guidance into the superior vena cava. An image documenting ultrasound guidance for vascular access was permanently saved. The length of the single-lumen 4 [place] PICC was trimmed to 32 centimeters and advanced through a peel-away sheath. The PICC was position with tip of PICC confirm a spot radiograph the superior vena cava. The PICC was secured to the patient's skin. The PICC was flushed. A biopatch and sterile dressing was applied. IMPRESSION: Placement of a single-lumen 4 [place] PICC trimmed to 32 centimeters via right basilic vein. The tip of the PICC is confirmed with spot radiograph and is in the superior vena cava.
--- NOTE | 2018-11-05 15:17 | CP.PCM.PN ---
Subjective - Date & Time of Evaluation Date of Evaluation: 11/05/18 Time of Evaluation: 15:17 - Subjective Subjective: ID Note- pt. seen and examined today. she is s/p picc line. no new events overnight. Objective - Vital Signs/Intake and Output Vital Signs (last 24 hours): Temp Pulse Resp BP Pulse Ox 98.2 F 120 H 19 109/50 L 98 11/05/18 12:23 11/05/18 12:23 11/05/18 12:23 11/05/18 12:23 11/05/18 12:23 - Medications Medications: Current Medications Acetaminophen (Tylenol 325mg Tab) 650 mg PO Q4 PRN PRN Reason: Temp 100 or above Ascorbic Acid (Vitamin C 500 Mg Tab) 500 mg PO DAILY [facility] Last Admin: 11/05/18 09:53 Dose: 500 mg Bisoprolol Fumarate (Zebeta) 5 mg PO DAILY [facility] Last Admin: 11/05/18 09:54 Dose: 5 mg Cyproheptadine HCl (Periactin) 4 mg PO BID [facility] Last Admin: 11/05/18 09:54 Dose: 4 mg Dimethicone (Proshield Plus Skin Protectant) 1 applic TOP QSHIFT [facility] Last Admin: 11/05/18 09:51 Dose: 1 applic Famotidine (Pepcid) 20 mg PO BID [facility] Last Admin: 11/05/18 09:53 Dose: 20 mg Meropenem 500 mg/ Sodium (Chloride) 100 mls @ 100 mls/hr IVPB Q8 [facility]; Protocol Last Admin: 11/05/18 09:50 Dose: 100 mls/hr Lactobacillus Acidophilus (Bacid Acidophilus) 1 cap PO BID [facility] Last Admin: 11/05/18 09:57 Dose: 1 cap Lamotrigine (Lamictal) 150 mg PO Q12 [facility] Last Admin: 11/05/18 09:52 Dose: 150 mg Multivitamins/Minerals (Therapeutic-M Tab) 1 tab PO DAILY [facility] Last Admin: 11/05/18 09:53 Dose: 1 tab Nitroglycerin (Nitro-Dur 0.2 Mg/Hr Patch) 1 patch TD DAILY [facility] Last Admin: 11/05/18 09:52 Dose: Not Given Nystatin (Nystop Topical Powder) 1 applic TOP BID [facility] Last Admin: 11/05/18 09:51 Dose: 1 applic [id number] Ethyl Esters (Lovaza) 1 gm PO DAILY [facility] Last Admin: 11/05/18 09:53 Dose: 1 gm Vitamin B Complex/Vit C/Folic Acid (Nephro-Carlos) 1 tab PO DAILY [facility] Last Admin: 11/05/18 09:54 Dose: 1 tab - Labs Labs: - Additional Findings Additional findings: - Constitutional Appears: No Acute Distress, Confused, Chronically Ill - Head Exam Head Exam: ATRAUMATIC - Eye Exam Eye Exam: EOMI - ENT Exam Additional comments: dry oropharynx - Neck Exam Neck exam: Positive for: Full Rom - Respiratory Exam Respiratory Exam: Clear to Auscultation Bilateral, NORMAL BREATHING PATTERN - Cardiovascular Exam Cardiovascular Exam: RRR, +S1, +S2 - GI/Abdominal Exam GI & Abdominal Exam: Normal Bowel Sounds, Soft Additional comments: NT, ND - Extremities Exam Additional comments: no edema b/l LE onychomycosis present b/l - Neurological Exam Additional comments: baseline dementia Laboratory Results - last 72 hr 11/03/18 11/03/18 12:30 12:30 WBC 5.1 RBC 3.28 L Hgb 9.9 L Hct 31.0 L MCV 94.5 MCH 30.1 MCHC 31.9 L RDW 19.1 H Plt Count 205 Sodium 143 Potassium 3.9 Chloride 113 H Carbon Dioxide 25 Anion Gap 9 L BUN 11 Creatinine 0.6 L Est GFR ( Amer) > 60 Est GFR (Non-Af Amer) > 60 Random Glucose 77 Calcium 7.7 L Magnesium 2.1 Total Bilirubin 0.8 AST 35 ALT 23 Alkaline Phosphatase 166 H D Total Protein 6.0 L Albumin 2.4 L Globulin 3.6 Albumin/Globulin Ratio 0.7 L Microbiology 10/28/18 05:45 Blood Blood Culture - Final NO GROWTH AFTER 5 DAYS 10/28/18 05:45 Blood Gram Stain - Final TEST NOT PERFORMED 10/28/18 17:15 Blood Blood Culture - Final NO GROWTH AFTER 5 DAYS 10/28/18 17:15 Blood Gram Stain - Final TEST NOT PERFORMED 10/28/18 22:45 Urine,Catheterized Urine Culture - Final Escherichia Coli Assessment and Plan (1) Altered mental status Status: Acute (2) UTI (urinary tract infection) Status: Acute (3) Dementia Status: Acute - Assessment and Plan (Free Text) Assessment: Assessment and plan Patient is a 88-year-old female resident [facility] admitted with failure to thrive and altered mental status. Patient has remained afebrile. Positive urinalysis with urine culture growing E. coli sensitive to imipenem. Minimal leukocytosis has resolved. Plan Advised to continue patient on meropenem IV to treat E. coli UTI. day #3. advise total of 7 days of IV abx for this.
[2018-11-05 16:15] VITALS: BP 97/58; PULSE 110; RESP 20; TEMP 97.5
--- NOTE | 2018-11-16 18:07 | PQF ---
PROVIDER RESPONSE TEXT: Sepsis secondary to UTI, present on admission REVIEWER QUERY TEXT: Rule Out Sepsis Clarification Sepsis is documented in the Medical Record in 11/02 progress note. Please clarify whether: -- Patient has sepsis - Please document confirmed, suspected or probable causative organism - Please document confirmed, suspected or probable localized infection - Please clarify if sepsis is related to a device - Please clarify if sepsis was present on admission -- Sepsis was ruled out (include corresponding diagnosis for patient?s clinical picture and treatment ) -- Patient had sepsis which is resolved -- Other, please specify The patient's Clinical Indicators include: xx Query created by: Alfreda Kelsey on 11/06/2018 1:49 PM Electronically signed by: Marco Antonio Ayoub MD 11/16/2018 6:03 PM
== END 2018-11-05 17:19 | DRG 872 ==
LOC: H.ER 16:31 → H.ERHOLD 22:25 → H.MEDSURG1 10-29 23:13
PROVIDERS: ADMIT Internal Medicine; ATTEND Internal Medicine
PROC: 02HV33Z Insertion of Infusion Device into Superior Vena Cava, Percutaneous Approach (ICD-10-PCS; principal; 2018-11-04)
PROC: B518ZZA Fluoroscopy of Superior Vena Cava, Guidance (ICD-10-PCS; 2018-11-04)
PROC: B548ZZA Ultrasonography of Superior Vena Cava, Guidance (ICD-10-PCS; 2018-11-04)
DX: A41.9 Sepsis, unspecified organism (principal); N39.0 Urinary tract infection, site not specified; E87.0 Hyperosmolality and hypernatremia; E86.0 Dehydration; Z66 Do not resuscitate; R62.7 Adult failure to thrive; B96.20 Unspecified Escherichia coli [E. coli] as the cause of diseases classified elsewhere; F03.90 Unspecified dementia, unspecified severity, without behavioral disturbance, psychotic disturbance, mood disturbance, and anxiety; K29.70 Gastritis, unspecified, without bleeding; I25.10 Atherosclerotic heart disease of native coronary artery without angina pectoris; R32 Unspecified urinary incontinence; R15.9 Full incontinence of feces; H91.93 Unspecified hearing loss, bilateral; I10 Essential (primary) hypertension; Z74.01 Bed confinement status; Z16.20 Resistance to unspecified antibiotic; B35.1 Tinea unguium; L89.152 Pressure ulcer of sacral region, stage 2; G40.909 Epilepsy, unspecified, not intractable, without status epilepticus; M81.0 Age-related osteoporosis without current pathological fracture; M19.90 Unspecified osteoarthritis, unspecified site; F79 Unspecified intellectual disabilities; H70.10 Chronic mastoiditis, unspecified ear; Z51.5 Encounter for palliative care; Z82.5 Family history of asthma and other chronic lower respiratory diseases; Z83.3 Family history of diabetes mellitus